=== PATIENT | female | born 1965 | race Caucasian/White ===

== ENCOUNTER → 2023-08-28 06:42 | Day surgery (SDC) | payer OTHER, SELFPAY | LOC: GI 06:42 | PROVIDERS: ATTENDING PHYSICIAN Internal Medicine | DX: K64.9 Unspecified hemorrhoids (principal); D12.0 Benign neoplasm of cecum; K63.89 Other specified diseases of intestine; K52.89 Other specified noninfective gastroenteritis and colitis; K50.10 Crohn's disease of large intestine without complications | CPT/HCPCS: 45385; 45380; 88305 ==

== ENCOUNTER → 2024-02-26 13:09 | Outpatient (REF) | payer OTHER, SELFPAY | LOC: HWWDC 13:09 | PROVIDERS: ATTENDING PHYSICIAN Obstetrics & Gynecology; FAMILY PHYSICIAN Family Medicine | DX: Z12.31 Encounter for screening mammogram for malignant neoplasm of breast (principal) | CPT/HCPCS: 77063; 77067 ==